=== PATIENT | female | born 1970 | race Caucasian/White ===

== ENCOUNTER 2016-11-20 19:11 | Observation (INO) | payer BC ==
[~2016-11-20] VITALS: Ht 162.6 cm; Wt 73.0 kg
[~2016-11-20 19:11] MED LIST: DICY10CA12 PO; DULO60CA58 PO; LANS30CA PO; LVT.05T PO; MELO-249 PO; NORT50CA PO; PROP60TA17 PO; TIZAN4T PO; TOPI50TA86 PO; ZOLM5TAB10 PO
--- OUTSIDE RECORDS SUMMARY | 2016-11-20 19:15 | XMS REPORT | Summary of Care ---
Author Author Neha Peres M.D. Unknown Address Unknown Phone Unavailable Care Team Providers Care Investigation Division Lieutenant Name Role Phone Stephen Ramirez, Cosmo Unavailable Unavailable Efrain Delong M.D. Unavailable Unavailable Albert Tejeda M.D. Unavailable Unavailable Efrain Peres M.D. Unavailable Unavailable Jorge Maza Unavailable Unavailable Unavailable Unavailable Functional Status Name Dates Details Functional status health issues are not documented Status: Name Dates Details Cognitive status health issues are not documented Status: Problems Name Dates Details Muscle spasm (728.85, M62.838) Status: Active Encounter for gynecological examination without abnormal finding (V72.31, Z01.419) Status: Active Migraine without aura, intractable (346.11, G43.019) Status: Active Hypothyroidism (244.9, E03.9) Status: Active Heartburn (787.1, R12) Status: Active Estrogen deficiency (256.39, E28.39) Status: Active Depression (311, F32.9) Status: Active Chronic low back pain (724.2, M54.5) Status: Active Irritable bowel syndrome (564.1, K58.9) Status: Active Nausea and vomiting (787.01, R11.2) Status: Active 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 Quantity: 1 Refills: 0 Ileana M.D., Verlin K Start 02-Jul-2016 Active 90 Tablet Bottle TiZANidine HCl - 4 MG Oral Tablet TAKE 1 TABLET 3 TIMES DAILY. Quantity: 1 Refills: 0 Ileana M.D., Verlin K Start 02-Jul-2016 Active 90 Tablet Bottle Lansoprazole 30 MG Oral Capsule Delayed Release TAKE ONE CAPSULE BY MOUTH ONCE DAILY Quantity: 1 Refills: 0 Ileana M.D., Verlin K Start 02-Jul-2016 Active 30 Capsule Delayed Release Bottle Meloxicam 15 MG Oral Tablet TAKE 1 TABLET EVERY DAY WITH FOOD Quantity: 1 Refills: 0 Lianet Tejeda M.D. Start 02-Jul-2016 Active 30 Tablet Bottle Propranolol HCl - 60 MG Oral Tablet Take 1 tablet daily Quantity: 30 Refills: 5 Amanuel Delong M.D. Start 02-Jul-2016 Active Topiramate 50 MG Oral Tablet TAKE 1 TABLET TWICE DAILY. Quantity: 1 Refills: 5 Baljeet Ramirez, Amanuel Zuniga Start 02-Jul-2016 Active 60 Tablet Bottle ZOLMitriptan 5 MG Oral Tablet TAKE 1 TABLET AT ONSET OF MIGRAINE. MAY REPEAT ONCE AFTER 2 HOURS. MAX 10 MG/ DAY. Quantity: 9 Refills: 5 Amanuel Delong M.D. Start 02-Jul-2016 Active Dicyclomine HCl - 10 MG Oral Capsule TAKE ONE CAPSULE BY MOUTH TWO TO THREE TIMES A DAY NEEDED. Quantity: 1 Refills: 0 Lianet Tejeda M.D. Start 02-Jul-2016 Active 90 Capsule Bottle Levothyroxine Sodium 50 MCG Oral Tablet Take 1 tablet daily Quantity: 1 Refills: 0 Lianet Tejeda M.D. Start 02-Jul-2016 Active 30 Tablet Bottle DULoxetine HCl - 60 MG Oral Capsule Delayed Release Particles TAKE 1 CAPSULE BY MOUTH DAILY Quantity: 1 Refills: 0 Lianet Tejeda M.D. Start 02-Jul-2016 Active 30 Capsule Delayed Release Particles Bottle Nortriptyline HCl - 50 MG Oral Capsule take 1 capsule daily Quantity: 1 Refills: 0 Ileana Ramirez Joeremi Price Start 02-Jul-2016 Active 30 Capsule Bottle SUMAtriptan Succinate 50 MG Oral Tablet Take 1 tablet at onset of headache, may repeat 1 time only in 2 hours Quantity: 6 Refills: 5 Amanuel Delong M.D. Start 17-Jul-2016 Active Estradiol 1 MG Oral Tablet Take one tablet by mouth daily Quantity: 30 Refills: 11 Neha Peres M.D. Start 05-Aug-2016 Active Estrace 0.1 MG/GM Vaginal Cream Apply pea-size amount to vulva nightly for 2 weeks then twice weekly at bedtime. Quantity: 30 Refills: 1 Neha Peres M.D. Start 05-Aug-2016 Active Hyoscyamine Sulfate ER 0.375 MG Oral Tablet Extended Release 12 Hour TAKE 1 TABLET DAILY. Refills: 0 Start 10-Sep-2016 Active Hyoscyamine Sulfate 0.125 MG Sublingual Tablet Sublingual PLACE 1 TABLET UNDER THE TONGUE EVERY 6 HOURS NEEDED. Quantity: 120 Refills: 0 Stephen M.D., Cosmo Start 10-Sep-2016 Active Amitiza 24 MCG Oral Capsule TAKE 1 CAPSULE TWICE DAILY WITH FOOD. Quantity: 60 Refills: 1 Stephen M.D., Cosmo Start 10-Sep-2016 Active Allergies and Adverse Reactions Name Dates Details Amoxicillin CAPS (Allergy) Status: Active Penicillins (Allergy) Status: Active Past Medical History Name Dates Details Chronic low back pain (724.2, M54.5) Status: Active Depression (311, F32.9) Status: Active Encounter for gynecological examination without abnormal finding (V72.31, Z01.419) Status: Active Estrogen deficiency (256.39, E28.39) Status: Active Heartburn (787.1, R12) Status: Active Hypothyroidism (244.9, E03.9) Status: Active Irritable bowel syndrome (564.1, K58.9) Status: Active Migraine without aura, intractable (346.11, G43.019) Status: Active History of History of vaginal delivery (V13.29) Status: Resolved History of Hypertension, essential, benign (401.1, I10) Status: Resolved Procedures Procedure Dates Details History of Appendectomy History of Cholecystectomy History of Hysterectomy History of Tubal Ligation Procedures not documented Immunization Name Dates Details Tdap (Adacel) Lot #: [id number] on: 02-Jul-2016 Influenza Lot #: [id number] on: 02-Jul-2016 Family History Name Dates Details Family history of epilepsy (V17.2, Z82.0) Status: Active Name Dates Details Family history of cerebrovascular accident (CVA) (V17.1, Z82.3) Status: Active Name Dates Details Family history of diabetes mellitus (V18.0, Z83.3) Status: Active Family history of hypertension (V17.49, Z82.49) Status: Active Social History Name Dates Details - Status: Name Dates Details Never smoker Vital Signs Date Test Result Details 10-Sep-2016 14:27 BP Systolic 99 mm[Hg] Status: Comments: Location: ; Position: BP Diastolic 61 mm[Hg] Status: Comments: Location: ; Position: Heart Rate 67 /min Status: Comments: Location: ; Height 64 in Status: Weight 157 lb Status: Body Mass Index Calculated 26.95 kg/m2 Status: Body Surface Area Calculated 1.76 m2 Status: 03-Sep-2016 17:48 BP Systolic 102 mm[Hg] Status: Comments: Location: ; Position: BP Diastolic 60 mm[Hg] Status: Comments: Location: ; Position: Temperature 97.2 f Status: Heart Rate 84 /min Status: Comments: Location: ; Physical Findings 98 Status: Comments: O2 Saturation Results Date Description Value Details 29-Aug-2016 17:39 MAMMOGRAM-SCREENING Comments: Exam Date: 08/29/2016 08: 13Dictation Date: 08/29/2016 17:39 XM SCREENING 02-Sep-2016 09:27 HASC PROCEDURE Comments: Exam Date: 08/29/2016 17: 29Dictation Date: 09/02/2016 09:27 Plan of Care Name Dates Details Planned Observations Planned Goals not documented Planned Encounters Appointment; Provider: Neha Peres M.D. On 07-Aug-2017 11:30 Appointment; Provider: Amanuel Delong M.D. On 08:30 Appointment; Provider: Cosmo Mitchell M.D. On 08-Oct-2016 13:45 Appointment; Provider: Schedule Radiology On 29-Aug-2016 08:20 Interventions Provided Medication ChangesEstrace 0.1 MG/GM Vaginal Cream - StartEstradiol 1 MG Oral Tablet - Start Instructions Name Dates Details Instructions not documented Encounters Appointment; Amanuel Delong M.D. Encounter Diagnosis: Problem not documented On 17-Jul-2016 13:15 Appointment; Lianet Tejeda M.D. Encounter Diagnosis: Problem not documented On 02-Jul-2016 11:30
[2016-11-20] MEDS ORDERED: KETOROLAC 30 MG/ML (TORADOL) 1 ML VIAL IV ONE (20:30)
[2016-11-20] MEDS ORDERED: ONDANSETRON 2 MG/ML (Z0FRAN) 2 ML VIAL IV ONE ×2 (20:30→23:00)
[2016-11-20] MEDS ORDERED: SODIUM CHLORIDE FLUSH 3 ML SYR IV PRN (20:30)
[2016-11-20] MEDS ORDERED: TRAM100T2 PO (20:45)
[2016-11-20] MEDS ORDERED: HYOS0.1217 PO (20:45)
[2016-11-20] MEDS ORDERED: TMZP15C PO (20:45)
[2016-11-20 21:29] LABS: BASOPHILS % (AUTO) 0 % (0-2); EOSINOPHILS # (AUTO) 0.1 10^3uL; EOSINOPHILS % (AUTO) 1 % (0-4); LYMPHOCYTES # (AUTO) 4.2 X10^3; MEAN CORPUSCULAR HEMOGLOBIN 28.3 PG (26.0-34.0); MEAN CORPUSCULAR HGB CONC 32.4 g/dL (31.0-37.0); MEAN CORPUSCULAR VOLUME 88 FL (80-100); MEAN PLATELET VOLUME 10.5 FL (6.0-9.5); MONOCYTES % (AUTO) 8 % (3-11); NEUTROPHILS # (AUTO) 7.2 X10^3; NEUTROPHILS % (AUTO) 57 % (51-67); PLATELET COUNT 298 10^3uL (150-450); WHITE BLOOD COUNT 12.58 10^3uL (4.0-11.0)
[2016-11-20 21:42] LABS: ALBUMIN 3.7 g/dL (3.4-5.0); ANION GAP 19.2 MEQ/L (3-15); CALCULATED IONIZED CALCIUM 3.9 mg/dL (3.8-4.6); TOTAL PROTEIN 7.1 g/dL (6.4-8.5)
[2016-11-20] MEDS ORDERED: HYDROmorphone 1 MG/ML (DILAUDID) SYRINGE IV ONE (23:00)
[2016-11-21 00:47] LABS: CLARITY,URINE Clear; COLOR,URINE Yellow; GLUCOSE, URINE (UA) Negative (Negative); LEUKOCYTE ESTERASE ,URINE Negative (Negative); PH,URINE 5.5 (5.0 - 8.0); UROBILINOGEN,URINE 0.2 mg/dL (0.2-1.0)
[2016-11-21 00:49] LABS: BILIRUBIN,URINE 1+ (Negative)
[2016-11-21 01:00] LABS: URINE CENTRIFUGED VOLUME 12 mL
[2016-11-21 01:04] LABS: COARSE GRANULAR CASTS,URINE Rare /LPF
[2016-11-21] MEDS ORDERED: KETOROLAC 30 MG/ML (TORADOL) 1 ML VIAL IV ONE (04:55)
[2016-11-21] MEDS ORDERED: ONDAN4ODT PO (04:56)
[2016-11-21] MEDS: SODIUM CHLORIDE FLUSH 10 ML SYR IV PRN (04:57)
[2016-11-21] MEDS ORDERED: METOCLOPRAMIDE 10 MG/2 ML (REGLAN) VIAL IV PRN (05:25)
[2016-11-21] MEDS ORDERED: morphine INJ 4 MG/ML 1 ML SYRINGE IV PRN (05:25)
[2016-11-21] MEDS ORDERED: KETOROLAC 15 MG/ML (TORADOL) 1 ML VIAL IV PRN (05:25)
[2016-11-21] MEDS ORDERED: ACETAMINOPHEN 325 MG TAB (TYLENOL) PO PRN (05:25)
[2016-11-21 06:31] VITALS: BP 114/77
[2016-11-21 06:33] VITALS: BP 114/77
[2016-11-21] MEDS ORDERED: HYOSCYAMINE 0.125 MG (LEVSIN) TABLET SL PRN (07:20)
[2016-11-21] MEDS ORDERED: DICYCLOMINE 10 MG (BENTYL) CAP PO PRN (07:20)
--- NOTE | 2016-11-21 07:43 | Diagnostic Imaging Report ---
Clinical indication: Patient with flank pain on right side for last couple of days. Rule out nephrolithiasis. Exam: CT exam of the abdomen and pelvis is performed without IV or oral contrast using stone protocol. Comparisons: None. Findings: Visualized lung bases: There is minimal atelectasis in both lung bases. Liver: Unremarkable as visualized. Gallbladder: Gallbladder surgically resected. Pancreas: Unremarkable as visualized. Spleen: Unremarkable as visualized. Adrenal glands: Unremarkable. Kidneys/ ureters: There is a 2 mm nonobstructive stone in the midportion of the right kidney. There are no other urinary tract stones seen. There is no stone in the ureter seen. Both kidneys are otherwise unremarkable with no hydronephrosis. Aorta: Unremarkable as visualized. Intraabdominal/ retroperitoneal contents: Unremarkable. Intestines: Unremarkable as visualized. There is a small to moderate amount of stool seen throughout the colon. Appendix: Not definitively visualized. There is no inflammatory changes or fluid collection in the pericecal region. Bladder: Unremarkable as visualized. Pelvic organs: Uterus is surgically resected. The adnexal regions are not seen and may also be surgically resected. Phleboliths are seen in the pelvis. Extra abdominal/ pelvis regions: Unremarkable. Abdominal wall: Unremarkable. Bones: There is small degenerative spurs involving the thoracic spine. Impression: 1: Nonobstructive right nephrolithiasis. 2: There is no other concern for acute abdominal or pelvic process. 3: Postop changes to the abdomen and pelvis, as described above. I agree with [employer] report. Dictated by: Dictated on workstation # [id number]
[2016-11-21] MEDS: ONDANSETRON 2 MG/ML (Z0FRAN) 2 ML VIAL IV PRN (07:45)
[2016-11-21] MEDS: HYDROmorphone 1 MG/ML (DILAUDID) SYRINGE IV PRN (07:45)
--- NOTE | 2016-11-21 08:22 | History and Physical (E) ---
History & Physical PCP: Satinder Maza CC: Migraine HPI Melly Ramírez is a 46 year old female admitted from ED 11/21 where she presented with complaint of migraine, ongoing for the last 3 days. She also complained of upper abdominal pain and vomiting.She also reported gaining 20 pounds weight in the last 2 weeks. Vitals on arrival were normal and stable. WBC was mildly elevated at 12.58 but no bandemia. Cr mildly elevated at 1.21. UA suggestive of dehydration. She got NS bolus x 2, ketorolac, hydromorphone, ondansetron. CT abdomen was checked because of abdominal pain complaint. Prelim showed small right nephrolithiasis but no obstruction or ureterolithiasis. No appendicitis, SBO, or diverticulitis. She did have constipation. Because of persistent migraine symptoms and abdominal pain, she was admitted for further management. On arrival to unit, tired appearing but interactive, oriented. States she had nausea staring 11/17. Awoke in early AM 11/18 with bad LOZANO (migraine) and started having vomiting. Couldn't keep her medications down. Couldn't keep down food or fluids. Struggled with this for several days until finally got bad enough to come to ED. Thought her temp at home was sometimes around 100. Had chills at times. No respiratory complaints. NO diarrhea. Last BM was yesterday and it appeared normal. Noticed urine output had dropped. Still hasn't voided much despite IVF given thus far. No dysuria. PMH * Migraines * GERD * Hypothyroidism * Levothyroxine * Insomnia * UTI * Nephrolithiasis but she has never experienced passing a kidney stone. * Endometriosis * Ovarian cysts * Irritable bowel * HTN PSH * Hysterectomy * Cholecystectomy * Appendectomy ALLERGIES: Please see list at end of report. HOME MEDICATIONS: Please see list at end of report. FH Mom is living and has stroke, HTN. Father has HTN and diabetes. 2 children. Daughter has HTN and migraine. Son is apparently healthy. SH Lives in [place] with boyfriend. Unemployed. Has two adult children. Denies smoking. Denies alcohol. Denies drug use. ROS CONSTITUTION: Denies weight loss or gain. HEENT: No change in vision or hearing. No sores in mouth, sore throat. CV: No chest pain, palpitations. PULM: No cough, shortness of breath, difficulty breathing. GI: Per HPI, exam. : No dysuria. Less urine output in the last 24 hours. MS: No new muscle or joint aches and pains. NEURO: No numbness or tingling. No weakness. INTEG: No rashes, lesions, or sores. ENDO: No heat or cold intolerance. No polydipsia or polyuria. HEME/LYMPH: No easy bruising or bleeding. No swollen glands. PSYCH: No change in mood or behavior. OBJECTIVE Vital Signs Date Time Temp Pulse Resp B/P Pulse Ox O2 Delivery O2 Flow Rate FiO2 11/21/16 06:40 84 18 95 Room Air 11/21/16 06:33 97.8 114/77 GEN: Alert, interactive, oriented. Tired appearing. HEENT: EOMI, PERRL, dry oral mucosa. CV: RRR S1 S2 normal with no murmur LUNGS: CTA B ABD: Soft, mild diffuse tenderness to palpation but tolerates exam well. No rebound or guarding. Active bowel sounds. EXTR: No C/C/E. Normal peripheral pulses. INTEG: No rash. NEURO: No focal motor neuro deficit. Weight: 73 kg Laboratory Results-14 Days 11/20/16 21:08: Alanine Aminotransferase (ALT/SGPT) 41, Albumin 3.7, Albumin/Globulin Ratio 1.088L, Alkaline Phosphatase 110, Amylase Level 89, Anion Gap 19.2H, Aspartate Amino Transf (AST/SGOT) 40H, BUN/Creatinine Ratio 26H, Basophils # (Auto) 0.0, Basophils (%) (Auto) 0, Blood Urea Nitrogen 31H, C-Reactive Protein 0.60, Calcium Level 8.9, Calcium/Ionized Calcium Ratio 3.9, Calculated Osmolality 279L , Carbon Dioxide Level 15L, Chloride Level 110H, Creatinine 1.21H, Eosinophils # (Auto) 0.1, Eosinophils (%) (Auto) 1, Estimat Glomerular Filtration Rate 58.0 , Estimated GFR (Non- 47.9, Glucose Level 103, Hematocrit 44.20 , Hemoglobin 14.3, Lipase 106, Lymphocytes # (Auto) 4.2, Lymphocytes (%) (Auto) 33, Mean Corpuscular Hemoglobin 28.3, Mean Corpuscular Hemoglobin Concent 32.4, Mean Corpuscular Volume 88, Mean Platelet Volume 10.5H, Monocytes # (Auto) 1.0, Monocytes (%) (Auto) 8, Neutrophils # (Auto) 7.2, Neutrophils (%) (Auto) 57, Platelet Count 298, Potassium Level 3.5, Red Blood Count 5.05H, Red Cell Distribution Width 13.7, Sodium Level 141, Total Bilirubin 0.5, Total Protein 7.1, White Blood Count 12.58H 11/21/16 00:40: Urine Bacteria Rare, Urine Bilirubin 1+H, Urine Blood Negative, Urine Clarity Clear, Urine Coarse Granular Casts Rare, Urine Collection Type Clean catch, Urine Color Yellow, Urine Glucose (UA) Negative, Urine Hyaline Casts 2+, Urine Ketones 1+H, Urine Leukocyte Esterase Negative, Urine Microscopic RBC 2-5, Urine Mucus 2+H, Urine Nitrite Negative, Urine Protein 2+H, Urine Specific [place] >=1.030, Urine Squamous Epithelial Cells 20-50, Urine Urobilinogen 0.2, Urine WBC 5-10H, Urine pH 5.5, Volume Urine Centrifuged 12 ml IMAGING 11/21/16 CT ABDOMEN/PELVIS: PRELIM: No hydronephrosis or ureteral calculus.Small right nephrolithiasis. No appendicitis, SBO, or, diverticulitis. Significant colonic stool. ASSESSMENT Melly Desiree is a 46 year old female admitted from ED 11/21 with migraine. She also had abdominal pain attributed to constipation. She had nausea/vomiting preceding this admission resulting in dehydration. PLAN * Migraine: Already got ketorolac. Trial of sumatriptan. Trial of diphenhydramine and prochlorperazine. Continue nortriptyline, propranolol, topiramate. * Constipation: Bowel regimen. * Abdominal Pain: Acetaminophen, ketorolac. Defer narcotic as much as possible. Bowel regimen. * AURA: Likely due to dehydration. Cr mildly elevated at 1.21 on admit. Expected to correct with hydration. * Dehydration: On the basis of labs. NS bolus x 2 given in ED. Additional 1 L maintenance. * F/E/N: Clear liquid. IVF as above. Peripheral IV. * Prophylaxis: Ambulate * Code Status: Full * Dispo: Observation, expecting 48 hour stay. CHRONIC ISSUES * Depression: Duloxetine * Hypothyroidism: Levothyroxine * Insomnia: Temazepam * Muscle spasms: Tizanidine * IBS: Hyoscyamine * GERD: Pantoprazole (sub for lansoprazole) Allergies/Home Medications Allergies: Coded Allergies: Penicillins (Verified Allergy, Mild, YEAST INFECTION, HIVES, 11/20/16) metoclopramide (Verified Allergy, Mild, HIVES, 11/20/16) Reported Home Medications Scheduled Duloxetine HCl (Duloxetine HCl) 60 MG PO DAILY (Reported) Hyoscyamine Sulfate (Hyoscyamine Sulfate) 0.125 MG PO NEEDED (Reported) Lansoprazole (Lansoprazole) 30 MG PO DAILY (Reported) Levothyroxine Sodium (Levothyroxine Sodium) 50 MCG PO DAILY (Reported) Meloxicam (Meloxicam) 15 MG PO DAILY (Reported) Nortriptyline HCl (Nortriptyline HCl) 50 MG PO DAILY (Reported) Propranolol HCl (Propranolol HCl) 60 MG PO DAILY (Reported) Temazepam (Temazepam) 15 MG PO HS (Reported) Tizanidine HCl (Tizanidine HCl) 4 MG PO TID (Reported) Topiramate (Topiramate) 2 TAB PO BID (Reported) Tramadol HCl (Tramadol HCl) 100 MG PO DAILY (Reported) Scheduled PRN Dicyclomine HCl (Dicyclomine HCl) 10 MG PO NEEDED PRN PRN DIARRHEA (Reported ) Ondansetron HCl (Zofran ODT) 4 MG PO Q4H PRN PRN NAUSEA/VOMITING Zolmitriptan (Zolmitriptan) 5 MG PO NEEDED PRN PRN MIGRAINE (Reported) Copies to: End of Report . THEODORE HAYES MD Nov 21, 2016 07:27
[2016-11-21] MEDS ORDERED: PROPRANOLOL 20 MG (INDERAL) TABLET PO SCH (09:00)
[2016-11-21] MEDS ORDERED: LEVOTHYROXINE 50 MCG (LEVOTHROID) TABLET PO SCH (09:00)
[2016-11-21] MEDS: PANTOPRAZOLE 40 MG (PROTONIX) TAB PO SCH (09:05)
[2016-11-21] MEDS: DOCUSATE SODIUM 100 MG (COLACE) CAP PO SCH ×2 (09:05→21:28)
[2016-11-21] MEDS: DULOXETINE 60 MG PO SCH (09:05)
[2016-11-21] MEDS: POLYETHYLENE GLYCOL 17 GM (MIRALAX) PACKET PO SCH (09:06)
[2016-11-21] MEDS: toPIRamate 100 MG (TOPAMAX) TAB PO SCH ×2 (09:06→21:28)
[2016-11-21] MEDS: MAGNESIUM HYDROXIDE 80MG/ML (MILK OF MAGNESIA) 30 ML UDC PO SCH ×4 (09:06→21:00)
[2016-11-21] MEDS: NORTRIPTYLINE 25 MG (PAMELOR) CAP PO SCH (09:06)
[2016-11-21] MEDS ORDERED: diphenhydrAMINE 50 MG/ML INJ (BENADRYL) IV ONE (09:10)
[2016-11-21] MEDS ORDERED: PROCHLORPERAZINE IV ONE (09:12)
[2016-11-21] MEDS: SUMAtriptan 6 MG/0.5 ML (IMITREX) INJ SC PRN ×2 (09:17→10:28)
[2016-11-21] MEDS ORDERED: PROP40TA5 PO (09:55)
[2016-11-21] MEDS ORDERED: SUMA50TA14 PO (09:57)
[2016-11-21] MEDS ORDERED: GBPN100C PO (10:00)
[2016-11-21] MEDS: TIZANIDINE 4 MG PO SCH ×3 (10:28→17:37)
[2016-11-21 16:07] VITALS: BP 112/63
[2016-11-21] MEDS: GABAPENTIN 100 MG (NEURONTIN) CAP PO SCH (17:37)
[2016-11-21 20:30] VITALS: BP 100/62
[2016-11-21] MEDS: TEMAZEPAM 15 MG (RESTORIL) CAP PO SCH (21:28)
[2016-11-21] MEDS: PROPRANOLOL 40 MG PO SCH (21:29)
[2016-11-22 00:12] VITALS: BP 100/56
[2016-11-22] MEDS: HYDROmorphone 1 MG/ML (DILAUDID) SYRINGE IV PRN ×2 (03:29→20:41)
[2016-11-22] MEDS: ONDANSETRON 2 MG/ML (Z0FRAN) 2 ML VIAL IV PRN ×3 (03:30→17:16)
[2016-11-22 06:13] LABS: MEAN CORPUSCULAR VOLUME 89 FL (80-100); MEAN PLATELET VOLUME 10.7 FL (6.0-9.5); PLATELET COUNT 224 10^3uL (150-450)
[2016-11-22] MEDS: LEVOTHYROXINE 50 MCG (LEVOTHROID) TABLET PO SCH (06:27)
[2016-11-22 06:33] LABS: ALBUMIN 2.6 g/dL (3.4-5.0); ANION GAP 9.8 MEQ/L (3-15)
[2016-11-22 06:59] LABS: MEAN CORPUSCULAR HGB CONC 31.5 g/dL (31.0-37.0)
[2016-11-22 07:02] LABS: BAND NEUTROPHILS % 0 % (0-6); EOSINOPHILS % 2 % (0-4); LYMPHOCYTES # 3.1 #; MONOCYTES # 0.4 #; MONOCYTES % 7 % (3-11); RBC MORPH NORMAL (NORMAL); SEGMENTED NEUTROPHILS % 34 % (51-67); TOTAL CELLS COUNTED 100
[2016-11-22 08:21] VITALS: BP 105/71
[2016-11-22] MEDS: NORTRIPTYLINE 25 MG (PAMELOR) CAP PO SCH (08:57)
[2016-11-22] MEDS: toPIRamate 100 MG (TOPAMAX) TAB PO SCH ×2 (08:57→20:40)
[2016-11-22] MEDS: PANTOPRAZOLE 40 MG (PROTONIX) TAB PO SCH (08:57)
[2016-11-22] MEDS: GABAPENTIN 100 MG (NEURONTIN) CAP PO SCH ×3 (08:57→17:18)
[2016-11-22] MEDS: DOCUSATE SODIUM 100 MG (COLACE) CAP PO SCH ×2 (08:57→20:40)
[2016-11-22] MEDS: TIZANIDINE 4 MG PO SCH ×3 (08:57→17:19)
[2016-11-22] MEDS: POLYETHYLENE GLYCOL 17 GM (MIRALAX) PACKET PO SCH (08:57)
[2016-11-22] MEDS: DULOXETINE 60 MG PO SCH (08:57)
[2016-11-22] MEDS: MAGNESIUM HYDROXIDE 80MG/ML (MILK OF MAGNESIA) 30 ML UDC PO SCH ×4 (08:58→20:40)
[2016-11-22] MEDS: PROPRANOLOL 40 MG PO SCH ×2 (08:58→20:40)
[2016-11-22] MEDS: SUMAtriptan 6 MG/0.5 ML (IMITREX) INJ SC PRN ×2 (09:56→10:56)
[2016-11-22 12:12] VITALS: BP 101/46
--- NOTE | 2016-11-22 14:24 | Progress Note (E) ---
Progress Note SUBJECTIVE Overnight, still having some headache but slowly improving. Bowels now quite irregular. Had some stool incontinence. Having BM. Advancing diet. Having throbbing LOZANO when getting OOB but overall improving. Agreeable to staying additional day to ensure she's stabilizing. Encourage ambulation out of room. OBJECTIVE Vital Signs Date Time Temp Pulse Resp B/P Pulse Ox O2 Delivery O2 Flow Rate FiO2 11/22/16 12:12 96.8 65 16 101/46 100 Room air I & O 11/21/16 11/22/16 Cumulative From/Thru 19:00 07:00 11/20/16 20:00 - 11/22/16 06:04 Intake Total 2165 ml 492 ml 2657 ml Output Total 150 ml 1400 ml 1550 ml Balance 2015 ml -908 ml 1107 ml GEN: Alert, pleasant, interactive, oriented. Tired appearing. HEENT: EOMI, PERRL, dry oral mucosa. CV: RRR S1 S2 normal with no murmur LUNGS: CTA B ABD: Soft, mild diffuse tenderness to palpation but tolerates exam well. No rebound or guarding. Active bowel sounds. EXTR: No C/C/E. Normal peripheral pulses. INTEG: No rash. NEURO: No focal motor neuro deficit. Weight: 73 kg Lab-Past 14 Days, 35 Results 11/20/16 21:08: Alanine Aminotransferase (ALT/SGPT) 41, Albumin 3.7, Albumin/Globulin Ratio 1.088L, Alkaline Phosphatase 110, Amylase Level 89, Anion Gap 19.2H, Aspartate Amino Transf (AST/SGOT) 40H, BUN/Creatinine Ratio 26H, Basophils # (Auto) 0.0, Basophils (%) (Auto) 0, Blood Urea Nitrogen 31H, C-Reactive Protein 0.60, Calcium Level 8.9, Calcium/Ionized Calcium Ratio 3.9, Calculated Osmolality 279L , Carbon Dioxide Level 15L, Chloride Level 110H, Creatinine 1.21H, Eosinophils # (Auto) 0.1, Eosinophils (%) (Auto) 1, Estimat Glomerular Filtration Rate 58.0 , Estimated GFR (Non- 47.9, Glucose Level 103, Hematocrit 44.20 , Hemoglobin 14.3, Lipase 106, Lymphocytes # (Auto) 4.2, Lymphocytes (%) (Auto) 33, Mean Corpuscular Hemoglobin 28.3, Mean Corpuscular Hemoglobin Concent 32.4, Mean Corpuscular Volume 88, Mean Platelet Volume 10.5H, Monocytes # (Auto) 1.0, Monocytes (%) (Auto) 8, Neutrophils # (Auto) 7.2, Neutrophils (%) (Auto) 57, Platelet Count 298, Potassium Level 3.5, Red Blood Count 5.05H, Red Cell Distribution Width 13.7, Sodium Level 141, Total Bilirubin 0.5, Total Protein 7.1, White Blood Count 12.58H 11/21/16 00:40: Urine Bacteria Rare, Urine Bilirubin 1+H, Urine Blood Negative, Urine Clarity Clear, Urine Coarse Granular Casts Rare, Urine Collection Type Clean catch, Urine Color Yellow, Urine Glucose (UA) Negative, Urine Hyaline Casts 2+, Urine Ketones 1+H, Urine Leukocyte Esterase Negative, Urine Microscopic RBC 2-5, Urine Mucus 2+H, Urine Nitrite Negative, Urine Protein 2+H, Urine Specific [place] >=1.030, Urine Squamous Epithelial Cells 20-50, Urine Urobilinogen 0.2, Urine WBC 5-10H, Urine pH 5.5, Volume Urine Centrifuged 12 ml 11/21/16 09:00: Thyroid Stimulating Hormone (TSH) 12.60H 11/22/16 05:40: Albumin 2.6#L, Anion Gap 9.8, Basophils # (Auto) , Basophils (%) (Auto) , Blood Urea Nitrogen 13#, Calcium Level 7.6L, Carbon Dioxide Level 23, Chloride Level 114H, Creatinine 0.60#, Eosinophils # (Auto) , Eosinophils (%) (Auto) , Estimat Glomerular Filtration Rate 130.2, Estimated GFR (Non- 107.6, Glucose Level 82#, Hematocrit 31.10L, Hemoglobin 9.8L, Lipase 74, Lymphocytes # (Auto) , Lymphocytes (%) (Auto) , Mean Corpuscular Hemoglobin 28.0, Mean Corpuscular Hemoglobin Concent 31.5, Mean Corpuscular Volume 89, Mean Platelet Volume 10.7H, Monocytes # (Auto) , Monocytes (%) (Auto) , Neutrophils # (Auto) , Neutrophils (%) (Auto) , Platelet Count 224, Potassium Level 4.2, Red Blood Count 3.50L, Red Cell Distribution Width 13.7, Sodium Level 143, White Blood Count 5.40, Absolute Band Neutrophils 0.0, Band Neutrophils % 0, Basophils # ( Manual) 0.0, Basophils % (Manual) 0, Blood Morphology Comment Normal, Differential Total Cells Counted 100, Eosinophils # 0.1, Eosinophils % (Manual) 2, Lymphocytes # 3.1, Lymphocytes % (Manual) 57H, Monocytes # 0.4, Monocytes % ( Manual) 7, Neutrophils # 1.8, Phosphorus Level 2.2L, Segmented Neutrophils % 34L IMAGING 11/21/16 CT ABDOMEN/PELVIS WO Clinical indication: Patient with flank pain on right side for last couple of days. Rule out nephrolithiasis. Exam: CT exam of the abdomen and pelvis is performed without IV or oral contrast using stone protocol. Comparisons: None. Findings: Visualized lung bases: There is minimal atelectasis in both lung bases. Liver: Unremarkable as visualized. Gallbladder: Gallbladder surgically resected. Pancreas: Unremarkable as visualized. Spleen: Unremarkable as visualized. Adrenal glands: Unremarkable. Kidneys/ ureters: There is a 2 mm nonobstructive stone in the midportion of the right kidney. There are no other urinary tract stones seen. There is no stone in the ureter seen. Both kidneys are otherwise unremarkable with no hydronephrosis. Aorta: Unremarkable as visualized. Intraabdominal/ retroperitoneal contents: Unremarkable. Intestines: Unremarkable as visualized. There is a small to moderate amount of stool seen throughout the colon. Appendix: Not definitively visualized. There is no inflammatory changes or fluid collection in the pericecal region. Bladder: Unremarkable as visualized. Pelvic organs: Uterus is surgically resected. The adnexal regions are not seen and may also be surgically resected. Phleboliths are seen in the pelvis. Extra abdominal/ pelvis regions: Unremarkable. Abdominal wall: Unremarkable. Bones: There is small degenerative spurs involving the thoracic spine. Impression: 1: Nonobstructive right nephrolithiasis. 2: There is no other concern for acute abdominal or pelvic process. 3: Postop changes to the abdomen and pelvis, as described above. ASSESSMENT Melly Ramírez is a 46 year old female admitted from ED 11/21 with migraine. She also had abdominal pain attributed to constipation. She had nausea/vomiting preceding this admission resulting in dehydration. She improved with supportive therapies as outlined. PLAN * Migraine: Improving. Ketorolac. Trial of sumatriptan which helped. Trial of diphenhydramine and prochlorperazine but no change in her symptoms overall. Continued nortriptyline, propranolol, topiramate. Discouraged use of hydromorphone. * Constipation: Improving. Bowel regimen. * Abdominal Pain: Resolved. Acetaminophen, ketorolac. Defer narcotic as much as possible. Bowel regimen. * AURA: Resolved. Likely due to dehydration. Cr mildly elevated at 1.21 on admit. Expected to correct with hydration. * Dehydration: Resolved. On the basis of labs. NS bolus x 2 given in ED. Additional 1 L maintenance. * F/E/N: Regular diet. IVF as above. Peripheral IV. * Prophylaxis: Ambulate * Code Status: Full * Dispo: Observation. Likely discharge home 11/23 when LOZANO is more consistently resolved and bowels more cleaned out. CHRONIC ISSUES * Depression: Duloxetine * Hypothyroidism: Levothyroxine * Insomnia: Temazepam * Muscle spasms: Tizanidine * IBS: Hyoscyamine * GERD: Pantoprazole (sub for lansoprazole) THEODORE HAYES MD Nov 22, 2016 14:24
[2016-11-22] MEDS: SODIUM CHLORIDE FLUSH 10 ML SYR IV PRN (17:16)
[2016-11-22 19:30] VITALS: BP 99/52
[2016-11-22] MEDS: TEMAZEPAM 15 MG (RESTORIL) CAP PO SCH (20:40)
[2016-11-23 00:12] VITALS: BP 99/52
[2016-11-23] MEDS: SODIUM CHLORIDE FLUSH 10 ML SYR IV PRN (03:32)
[2016-11-23] MEDS: HYDROmorphone 1 MG/ML (DILAUDID) SYRINGE IV PRN (03:33)
[2016-11-23] MEDS: ONDANSETRON 2 MG/ML (Z0FRAN) 2 ML VIAL IV PRN (03:33)
[2016-11-23] MEDS: LEVOTHYROXINE 50 MCG (LEVOTHROID) TABLET PO SCH (06:25)
[2016-11-23 08:04] VITALS: BP 92/54
[2016-11-23] MEDS: MAGNESIUM HYDROXIDE 80MG/ML (MILK OF MAGNESIA) 30 ML UDC PO SCH ×2 (09:27→12:14)
[2016-11-23] MEDS: POLYETHYLENE GLYCOL 17 GM (MIRALAX) PACKET PO SCH (09:27)
[2016-11-23] MEDS: toPIRamate 100 MG (TOPAMAX) TAB PO SCH (09:27)
[2016-11-23] MEDS: PANTOPRAZOLE 40 MG (PROTONIX) TAB PO SCH (09:28)
[2016-11-23] MEDS: GABAPENTIN 100 MG (NEURONTIN) CAP PO SCH ×2 (09:28→12:20)
[2016-11-23] MEDS: NORTRIPTYLINE 25 MG (PAMELOR) CAP PO SCH (09:28)
[2016-11-23] MEDS: DOCUSATE SODIUM 100 MG (COLACE) CAP PO SCH (09:28)
[2016-11-23] MEDS: PROPRANOLOL 40 MG PO SCH (09:28)
[2016-11-23] MEDS: DULOXETINE 60 MG PO SCH (09:28)
[2016-11-23] MEDS: TIZANIDINE 4 MG PO SCH ×2 (09:28→12:20)
[2016-11-23] MEDS ORDERED: AC325T PO (11:11)
[2016-11-23] MEDS ORDERED: ONDAN4ODT PO (11:11)
--- NOTE | 2016-11-23 11:13 | Discharge Instructions (E) ---
Discharge Instructions Instructions * You were evaluated and treated for migraine. You improved with sumatriptan and medication for pain and nausea. At home, continue nortriptyline, propranolol , and topiramate to reduce your risk of recurrent migraine. Review the provided handout for details. * If you feel symptoms of migraine starting, take sumatriptan or zolmitriptan which you have at home. These medications work best when taken at the earliest sign of migraine headache. * You had abdominal pain attributed to diarrhea. You were given stool softeners to help with this. At discharge, you can use [id number] stool softeners as needed for constipation. * You had mild dehydration but this improved with IV fluids. Activity Instructions As tolerated. Doctor's Appointment Follow-up with your primary care doctor in 3-5 days. Records of this hospitalization will be faxed to his office. Discharge Diet: THEODORE Milian MD Nov 23, 2016 11:06
[2016-11-23] MEDS ORDERED: LACT1CAP62 PO (11:25)
[2016-11-23 12:10] VITALS: BP 99/52
--- NOTE | 2016-11-24 20:04 | Discharge Summary (E) ---
Discharge Summary (E) Admit Date/Time Nov 21, 2016 at 05:43 Discharge Date/Time Nov 23, 2016 at 12:20 Admitting Provider Bijan Negron MD Primary Care Provider Satinder Maza Attending Provider Bijan Negron MD Consulting Provider History and Present Illness Melly Ramírez is a 46 year old female admitted from ED 11/21 with migraine. She also had abdominal pain attributed to constipation. She had nausea/vomiting preceding this admission resulting in dehydration. She improved with supportive therapies as outlined and was discharged home in improved, stable condition. Hospital Course and Treatment * Migraine: Improving. Ketorolac. Trial of sumatriptan which helped. Trial of diphenhydramine and prochlorperazine but no change in her symptoms overall. Continued nortriptyline, propranolol, topiramate. Discouraged use of hydromorphone. On follow-up, LOZANO had improved and she was reminded to use sumatriptan or zolmitriptan at home at first signs of recurrent migraine. * Constipation: Improving. Bowel regimen. Had numerous BM before discharge. * Abdominal Pain: Resolved with treatment of constipation. Acetaminophen, ketorolac. Deferred narcotic as much as possible. Bowel regimen. * AURA: Resolved. Likely due to dehydration. Cr mildly elevated at 1.21 on admit. * Dehydration: Resolved. On the basis of labs. NS bolus x 2 given in ED. Additional 1 L maintenance. * F/E/N: Regular diet. IVF as above. Peripheral IV. * Prophylaxis: Ambulate * Code Status: Full * Dispo: Observation. Discharged home 11/23. CHRONIC ISSUES * Depression: Duloxetine * Hypothyroidism: Levothyroxine * Insomnia: Temazepam * Muscle spasms: Tizanidine * GERD: Pantoprazole (sub for lansoprazole) * IBS: Hyoscyamine. Says she is struggling with symptoms. Reminded her to inform urgent care/ED providers of irritable bowel diagnosis to minimize risky repeat CT scans. Encouraged her to try probiotic. Encouraged her to discuss with PCP about further management recommendations and/or referral a different director of estate for further guidance. Discharge Physicial Exam General Vital Signs Date Time Temp Pulse Resp B/P Pulse Ox O2 Delivery O2 Flow Rate FiO2 11/23/16 12:10 97.2 75 20 99/52 95 Room air GEN: Alert, pleasant, interactive, oriented. More well-rested. HEENT: EOMI, PERRL, moist oral mucosa. CV: RRR S1 S2 normal with no murmur LUNGS: CTA B ABD: Soft, mild diffuse tenderness to palpation but tolerates exam well. No rebound or guarding. Active bowel sounds. EXTR: No C/C/E. Normal peripheral pulses. INTEG: No rash. NEURO: No focal motor neuro deficit. Laboratory/Radiology Data Laboratory Results-14 Days 11/20/16 21:08: Alanine Aminotransferase (ALT/SGPT) 41, Albumin 3.7, Albumin/Globulin Ratio 1.088L, Alkaline Phosphatase 110, Amylase Level 89, Anion Gap 19.2H, Aspartate Amino Transf (AST/SGOT) 40H, BUN/Creatinine Ratio 26H, Basophils # (Auto) 0.0, Basophils (%) (Auto) 0, Blood Urea Nitrogen 31H, C-Reactive Protein 0.60, Calcium Level 8.9, Calcium/Ionized Calcium Ratio 3.9, Calculated Osmolality 279L , Carbon Dioxide Level 15L, Chloride Level 110H, Creatinine 1.21H, Eosinophils # (Auto) 0.1, Eosinophils (%) (Auto) 1, Estimat Glomerular Filtration Rate 58.0 , Estimated GFR (Non- 47.9, Glucose Level 103, Hematocrit 44.20 , Hemoglobin 14.3, Lipase 106, Lymphocytes # (Auto) 4.2, Lymphocytes (%) (Auto) 33, Mean Corpuscular Hemoglobin 28.3, Mean Corpuscular Hemoglobin Concent 32.4, Mean Corpuscular Volume 88, Mean Platelet Volume 10.5H, Monocytes # (Auto) 1.0, Monocytes (%) (Auto) 8, Neutrophils # (Auto) 7.2, Neutrophils (%) (Auto) 57, Platelet Count 298, Potassium Level 3.5, Red Blood Count 5.05H, Red Cell Distribution Width 13.7, Sodium Level 141, Total Bilirubin 0.5, Total Protein 7.1, White Blood Count 12.58H 11/21/16 00:40: Urine Bacteria Rare, Urine Bilirubin 1+H, Urine Blood Negative, Urine Clarity Clear, Urine Coarse Granular Casts Rare, Urine Collection Type Clean catch, Urine Color Yellow, Urine Glucose (UA) Negative, Urine Hyaline Casts 2+, Urine Ketones 1+H, Urine Leukocyte Esterase Negative, Urine Microscopic RBC 2-5, Urine Mucus 2+H, Urine Nitrite Negative, Urine Protein 2+H, Urine Specific [place] >=1.030, Urine Squamous Epithelial Cells 20-50, Urine Urobilinogen 0.2, Urine WBC 5-10H, Urine pH 5.5, Volume Urine Centrifuged 12 ml 11/21/16 09:00: Thyroid Stimulating Hormone (TSH) 12.60H 11/22/16 05:40: Albumin 2.6#L, Anion Gap 9.8, Basophils # (Auto) , Basophils (%) (Auto) , Blood Urea Nitrogen 13#, Calcium Level 7.6L, Carbon Dioxide Level 23, Chloride Level 114H, Creatinine 0.60#, Eosinophils # (Auto) , Eosinophils (%) (Auto) , Estimat Glomerular Filtration Rate 130.2, Estimated GFR (Non- 107.6, Glucose Level 82#, Hematocrit 31.10L, Hemoglobin 9.8L, Lipase 74, Lymphocytes # (Auto) , Lymphocytes (%) (Auto) , Mean Corpuscular Hemoglobin 28.0, Mean Corpuscular Hemoglobin Concent 31.5, Mean Corpuscular Volume 89, Mean Platelet Volume 10.7H, Monocytes # (Auto) , Monocytes (%) (Auto) , Neutrophils # (Auto) , Neutrophils (%) (Auto) , Platelet Count 224, Potassium Level 4.2, Red Blood Count 3.50L, Red Cell Distribution Width 13.7, Sodium Level 143, White Blood Count 5.40, Absolute Band Neutrophils 0.0, Band Neutrophils % 0, Basophils # ( Manual) 0.0, Basophils % (Manual) 0, Blood Morphology Comment Normal, Differential Total Cells Counted 100, Eosinophils # 0.1, Eosinophils % (Manual) 2, Lymphocytes # 3.1, Lymphocytes % (Manual) 57H, Monocytes # 0.4, Monocytes % ( Manual) 7, Neutrophils # 1.8, Phosphorus Level 2.2L, Segmented Neutrophils % 34L IMAGING 11/21/16 CT ABDOMEN/PELVIS WO Clinical indication: Patient with flank pain on right side for last couple of days. Rule out nephrolithiasis. Exam: CT exam of the abdomen and pelvis is performed without IV or oral contrast using stone protocol. Comparisons: None. Findings: Visualized lung bases: There is minimal atelectasis in both lung bases. Liver: Unremarkable as visualized. Gallbladder: Gallbladder surgically resected. Pancreas: Unremarkable as visualized. Spleen: Unremarkable as visualized. Adrenal glands: Unremarkable. Kidneys/ ureters: There is a 2 mm nonobstructive stone in the midportion of the right kidney. There are no other urinary tract stones seen. There is no stone in the ureter seen. Both kidneys are otherwise unremarkable with no hydronephrosis. Aorta: Unremarkable as visualized. Intraabdominal/ retroperitoneal contents: Unremarkable. Intestines: Unremarkable as visualized. There is a small to moderate amount of stool seen throughout the colon. Appendix: Not definitively visualized. There is no inflammatory changes or fluid collection in the pericecal region. Bladder: Unremarkable as visualized. Pelvic organs: Uterus is surgically resected. The adnexal regions are not seen and may also be surgically resected. Phleboliths are seen in the pelvis. Extra abdominal/ pelvis regions: Unremarkable. Abdominal wall: Unremarkable. Bones: There is small degenerative spurs involving the thoracic spine. Impression: 1: Nonobstructive right nephrolithiasis. 2: There is no other concern for acute abdominal or pelvic process. 3: Postop changes to the abdomen and pelvis, as described above. Discharge Disposition Discharged home. Instructions * You were evaluated and treated for migraine. You improved with sumatriptan and medication for pain and nausea. At home, continue nortriptyline, propranolol , and topiramate to reduce your risk of recurrent migraine. Review the provided handout for details. * If you feel symptoms of migraine starting, take sumatriptan or zolmitriptan which you have at home. These medications work best when taken at the earliest sign of migraine headache. * You had abdominal pain attributed to diarrhea. You were given stool softeners to help with this. At discharge, you can use [id number] stool softeners as needed for constipation. * You had mild dehydration but this improved with IV fluids. Activity Instructions As tolerated. Appointments Follow-up with your primary care doctor in 3-5 days. Records of this hospitalization will be faxed to his office. Discharge Diet: Regular Discharge Medications New Medications: Lactobacillus Acidophilus (Probiotic) 1 Each Capsule 1 EACH PO DAILY #30 Ref 1 CAP Acetaminophen (Acetaminophen) 325 Mg Tablet 650 MG PO Q6H PRN PAIN #0 Ref 0 TAB Continued Medications: Dicyclomine HCl (Dicyclomine HCl) 10 Mg Capsule 10 MG PO NEEDED PRN DIARRHEA CAP Duloxetine HCl (Duloxetine HCl) 60 Mg Capsule.dr 60 MG PO DAILY CAP Gabapentin (Gabapentin) 100 Mg Capsule 100 MG PO TID CAP Hyoscyamine Sulfate (Hyoscyamine Sulfate) 0.125 Mg Tab.rapdis 0.125 MG PO NEEDED TAB Lansoprazole (Lansoprazole) 30 Mg Capsule.dr 30 MG PO DAILY CAP Levothyroxine Sodium (Levothyroxine Sodium) 50 Mcg Tablet 50 MCG PO DAILY TAB Meloxicam (Meloxicam) 15 Mg Tablet 15 MG PO DAILY TAB Nortriptyline HCl (Nortriptyline HCl) 50 Mg Capsule 50 MG PO DAILY CAP Ondansetron HCl (Zofran ODT) 4 Mg Tab.rapdis 4 MG PO Q4H PRN NAUSEA/VOMITING #15 Ref 1 TAB (This prescription has been renewed) Propranolol HCl (Propranolol HCl) 40 Mg Tablet 40 MG PO BID TAB Sumatriptan Succinate (Sumatriptan Succinate) 50 Mg Tablet 50 MG PO DAILY PRN HEADACHE TAB Temazepam (Temazepam) 15 Mg Capsule 15-30 MG PO HS CAP Tizanidine HCl (Tizanidine HCl) 4 Mg Tablet 4 MG PO TID TAB Topiramate (Topiramate) 50 Mg Tablet 100 MG PO BID TAB Tramadol HCl (Tramadol HCl) 100 Mg Tab.er.24h 100 MG PO DAILY Pain Ref 0 TAB Zolmitriptan (Zolmitriptan) 5 Mg Tablet 5 MG PO NEEDED PRN MIGRAINE TAB Discharge Diagnosis See list above. Problems: Copies to: End of Report . BIJAN HAYES MD Nov 24, 2016 20:04
== END 2016-11-23 12:20 | disposition home or self-care (01) ==
LOC: ED 19:13 → MED/SURG 11-21 05:43
PROVIDERS: ADMIT Internal Medicine; ATTEND Internal Medicine
DX: G43.909 Migraine, unspecified, not intractable, without status migrainosus (principal); K59.00 Constipation, unspecified; N17.9 Acute kidney failure, unspecified; E86.0 Dehydration; N20.0 Calculus of kidney; E03.9 Hypothyroidism, unspecified; I10 Essential (primary) hypertension; K21.9 Gastro-esophageal reflux disease without esophagitis; K58.9 Irritable bowel syndrome, unspecified; F32.9 Major depressive disorder, single episode, unspecified
CPT/HCPCS: 36415; 51701; 74176; 80053; 80069; 81003; 81015; 82150; 83690; 84443; 85025; 86140; 96361; 96374; 96375; 96376; 99285; J0780; J1170; J1200; J1885; J2405; J3030; J7030; 99284

== ENCOUNTER 2016-12-22 10:19 | Emergency (ER) | payer BC ==
[~2016-12-22] VITALS: Ht 162.6 cm; Wt 69.0 kg
[~2016-12-22 10:19] MED LIST changes: +AC325T PO; +GBPN100C PO; +HYOS0.1217 PO; +LACT1CAP62 PO; +ONDAN4ODT PO; +PROP40TA5 PO; +SUMA50TA14 PO; +TMZP15C PO; +TRAM100T2 PO
--- NOTE | 2016-12-22 10:40 | NUR ---
Pt report was received from Triage Nurse.
--- NOTE | 2016-12-22 10:58 | NUR ---
Pt's PCP is Dr. Maza in [place] - has not seen him recently. Pt reports Toradol doesn't help with Migraines.
[2016-12-22] MEDS ORDERED: diphenhydrAMINE 50 MG/ML INJ (BENADRYL) IV SCH (11:25)
[2016-12-22] MEDS ORDERED: SODIUM CHLORIDE FLUSH 10 ML SYR IV PRN (11:25)
[2016-12-22] MEDS ORDERED: PROCHLORPERAZINE IV ONE (11:25)
[2016-12-22] MEDS ORDERED: DEXAMETHASONE 10 MG/ML (DECADRON) VIAL IV ONE (11:25)
[2016-12-22] MEDS ORDERED: SODIUM CHLORIDE FLUSH 3 ML SYR IV PRN (11:25)
--- NOTE | 2016-12-22 12:23 | NUR ---
Pt nods head up/down when asked if she was feeling better.
--- NOTE | 2016-12-22 12:45 | NUR ---
Patient reports feeling liker her tongue is swollen. Reported to Dr. Mann.
[2016-12-22] MEDS ORDERED: LORazepam 2 MG/ML (ATIVAN) 1 ML VIAL IV STA (12:47)
--- NOTE | 2016-12-22 13:08 | NUR ---
Now rates pain at "3-4" and has slight nausea. Has been up to toilet to urinate -- tolerated well. Asks if she could go home now and rest there. Pt pain level, nausea level, and request passed on to Dr. Mann.
[2016-12-22 19:04] VITALS: BP 149/106
== END 2016-12-22 13:21 | disposition home or self-care (01) ==
LOC: EDUNIT# 10:19 → ED 10:20
DX: G43.909 Migraine, unspecified, not intractable, without status migrainosus (principal)
CPT/HCPCS: 96361; 96374; 96375; 99284; J0780; J1100; J1200; J2060; J7030; 99282